=== PATIENT | male | born 1985 | race Hispanic/Latino ===

== ENCOUNTER 2021-07-01 10:06 | Emergency (ER) | payer SELFPAY ==
[~2021-07-01] VITALS: Ht 167.6 cm; Wt 65.8 kg
[~2021-07-01 10:06] MED LIST: CEFUROXIME250 MG PO; FLAGYL500 MG PO; LEVAQUIN500 MG PO; NICODERM CQ1 EAC1 TOP; PANTOPRAZOLE SO40 MG PO; PEPCID20 MG PO; TYLENOL # 31 EA PO; TYLENOL WITH C1 EACH PO; ZOFRAN ODT4 MG PO
[2021-07-01] MEDS ORDERED: ONDANSETRON HCL INJ 2MG/ML 2ML 2 MG/ML VIAL IV STA (10:15)
[2021-07-01] MEDS ORDERED: KETOROLAC TROMETHAMINE 30 MG/ML VIAL IV STA (10:15)
[2021-07-01] MEDS ORDERED: SODIUM CHLORIDE 0.9% 1000ML 1,000 ML IV SCH (10:15)
[2021-07-01 10:37] LABS: BASOPHILS % 0.2 % (0.0-1.0); EOSINOPHILS # (AUTO) 0.1 (0.0-0.4); EOSINOPHILS % 0.4 % (0.0-6.0); HEMATOCRIT 42.2 % (38.2-49.6); LYMPHOCYTES # (AUTO) 2.1 (1.0-3.2); LYMPHOCYTES % 16.4 % (18.0-39.1); MEAN CORPUSCULAR HEMOGLOBIN 30.6 pg (28-32); MEAN CORPUSCULAR HGB CONC 33.2 g/dL (31-35); MEAN CORPUSCULAR VOLUME 92.1 fL (81-99); MONOCYTES # (AUTO) 0.9 (0.2-0.8); MONOCYTES % 7.1 % (4.4-11.3); NEUTROPHILS # (AUTO) 9.5 (2.1-6.9); NEUTROPHILS % 75.4 % (38.7-80.0); PLATELET COUNT 217 x10e3/uL (140-360); RED BLOOD COUNT 4.58 x10e6/uL (4.3-5.7)
[2021-07-01 10:49] LABS: ALBUMIN 4.2 g/dL (3.5-5.0); ALBUMIN/GLOBULIN RATIO 1.2 (0.8-2.0); ANION GAP 15.1 mmol/L (8-16); CALCIUM 9.4 mg/dL (8.4-10.2); CREATININE, SERUM 0.8 mg/dL (0.72-1.25); POTASSIUM 4.1 mmol/L (3.5-5.1)
[2021-07-01] MEDS ORDERED: DIATRIZOATE MEGL/DIATRIZOA SOD 30 ML BTL PO ONE (11:09)
[2021-07-01 11:23] LABS: CLARITY,URINE CLEAR (CLEAR); COLOR,URINE YELLOW (YELLOW)
[2021-07-01 11:24] LABS: BACTERIA,URINE FEW /HPF; EPITHELIAL CELLS,URINE FEW /LPF; KETONES,URINE NEGATIVE (NEGATIVE); LEUKOCYTE ESTERASE ,URINE NEGATIVE (NEGATIVE); NITRITE,URINE NEGATIVE (NEGATIVE); PROTEIN,URINE DIPSTICK NEGATIVE (NEGATIVE); URINE UROBILINOGEN 0.2 mg/dL (0.2 - 1); WBC,URINE (MAN) 0-5 /HPF (0-5)
[2021-07-01] MEDS ORDERED: IOPAMIDOL 370 MG/ML 200 ML INFUS..BTL INJ ONE (12:02)
[2021-07-01] MEDS ORDERED: SODIUM CHLORIDE 0.9% 50ML 50 ML ONE (12:02)
[2021-07-01] MEDS ORDERED: ONDANSETRON ODT4 MG PO (13:23)
[2021-07-01] MEDS ORDERED: AMOX TR-K CLV1 EAC2 PO (13:23)
[2021-07-01] MEDS ORDERED: HYDROCODON-ACE1 EA12 PO (13:23)
[2021-07-01] MEDS ORDERED: Morphine 4mg Syringe 4 MG/ML INJ IV ONE (13:30)
[2021-07-01 14:39] VITALS: BP 120/90
== END 2021-07-01 14:25 | disposition home or self-care (01) ==
LOC: ER 10:15
DX: R10.32 Left lower quadrant pain (principal); K57.32 Diverticulitis of large intestine without perforation or abscess without bleeding; R11.0 Nausea
CPT/HCPCS: 36415; 74177; 80053; 81001; 85025; 99284; J1885; J2270; J2405; J7030; Q9967

== ENCOUNTER 2021-07-05 07:54 | Emergency (ER) | payer SELFPAY ==
[~2021-07-05] VITALS: Ht 167.6 cm; Wt 65.8 kg
[~2021-07-05 07:54] MED LIST changes: +AMOX TR-K CLV1 EAC2 PO; +HYDROCODON-ACE1 EA12 PO; +ONDANSETRON ODT4 MG PO
== END 2021-07-05 08:12 | disposition home or self-care (01) ==
LOC: ER 08:00
DX: R50.9 Fever, unspecified (principal); J09.X2 Influenza due to identified novel influenza A virus with other respiratory manifestations; R09.81 Nasal congestion; R52 Pain, unspecified; Z20.822 Contact with and (suspected) exposure to COVID-19
CPT/HCPCS: 99282; U0002

== ENCOUNTER 2021-11-19 18:07 | Emergency (ER) | payer OTHER ==
[~2021-11-19] VITALS: Ht 167.6 cm; Wt 65.8 kg
[2021-11-19] MEDS ORDERED: CEPHALEXIN 500 MG CAP PO SCH (18:30)
[2021-11-19] MEDS ORDERED: LIDOCAINE HCL 2% LOCAL 20 ML VIAL ONE (18:40)
[2021-11-19] MEDS ORDERED: BACITRACIN ZINC 0.9GM TP ONE ×2 (18:45→18:57)
== END 2021-11-19 19:00 | disposition home or self-care (01) ==
LOC: ER 18:59
DX: S61.012A Laceration without foreign body of left thumb without damage to nail, initial encounter (principal); W45.8XXA Other foreign body or object entering through skin, initial encounter; Y92.89 Other specified places as the place of occurrence of the external cause
CPT/HCPCS: 12001; 73140; 99283; J2001

== ENCOUNTER 2023-09-28 11:17 | Emergency (ER) | payer SELFPAY ==
[~2023-09-28] VITALS: Ht 167.6 cm; Wt 70.3 kg
[2023-09-28 12:06] LABS: BASOPHILS % 0.3 % (0.0-1.0); EOSINOPHILS % 0.2 % (0.0-6.0); HEMATOCRIT 44.2 % (38.2-49.6); HEMOGLOBIN 15.4 g/dL (14.0-18.0); LYMPHOCYTES # (AUTO) 1.4 (1.0-3.2); LYMPHOCYTES % 11.5 % (18.0-39.1); MEAN CORPUSCULAR HEMOGLOBIN 30.9 pg (28-32); MEAN CORPUSCULAR HGB CONC 34.8 g/dL (31-35); MEAN CORPUSCULAR VOLUME 88.6 fL (81-99); MONOCYTES # (AUTO) 0.5 (0.2-0.8); MONOCYTES % 4.5 % (4.4-11.3); NEUTROPHILS # (AUTO) 9.9 (2.1-6.9); NEUTROPHILS % 83.2 % (38.7-80.0); PLATELET COUNT 222 x10e3/uL (140-360); RED BLOOD COUNT 4.99 x10e6/uL (4.3-5.7); RED CELL DISTRIBUTION WIDTH 12.9 % (11.7-14.4); WHITE BLOOD COUNT 11.89 x10e3/uL (4.8-10.8)
[2023-09-28] MEDS: ASPIRIN 81 MG CHEW TAB PO ONE (12:16)
[2023-09-28 12:32] LABS: ALBUMIN 4.5 g/dL (3.5-5.0); ALBUMIN/GLOBULIN RATIO 1.3 (0.8-2.0); ANION GAP 16.8 mmol/L (8-16); CALCIUM 10.1 mg/dL (8.4-10.2); CREATININE, SERUM 0.93 mg/dL (0.72-1.25); MAGNESIUM 1.9 MG/DL (1.3-2.1); POTASSIUM 3.8 mmol/L (3.5-5.1); TOTAL PROTEIN 8.1 g/dL (6.5-8.1)
[2023-09-28 12:37] LABS: TROPONIN I 0.002 ng/mL (0-0.300)
[2023-09-28 14:12] VITALS: O2SAT 99
[2023-09-28] MEDS ORDERED: PEPCID20 MG PO (15:13)
== END 2023-09-28 15:31 | disposition home or self-care (01) ==
LOC: ER 11:25
DX: R10.13 Epigastric pain (principal); R11.0 Nausea; Z87.19 Personal history of other diseases of the digestive system
CPT/HCPCS: 36415; 71045; 80053; 82550; 83690; 83735; 84484; 85025; 93005; 99284